=== PATIENT | male | born 1995 | race Caucasian/White ===

== ENCOUNTER 2025-05-03 23:17 | Observation (INO) ==
[2025-05-04 00:11] LABS: Basophils # (Auto) 0.07 K/mcL (0.00-0.30); Basophils % (Auto) 0.7 % (0.0-2.0); Eosinophils # (Auto) 0.18 K/mcL (0.00-0.70); Eosinophils % (Auto) 1.8 % (0.0-7.0); Hematocrit 44.4 % (40.1-51.0); Hemoglobin 15.4 g/dL (13.7-17.5); Lymphocytes # (Auto) 1.92 K/mcL (1.50-4.80); Lymphocytes % (Auto) 19.1 % (15.5-49.0); Mean Corpuscular HGB Conc 34.7 g/dL (31.0-36.0); Monocytes # (Auto) 0.78 K/mcL (0.10-0.90); Monocytes % (Auto) 7.7 % (1.0-12.0); Neutrophils % (Auto) 70.6 % (38.0-78.0); Platelet Count 211 K/mcL (140-440); RBC 5.08 M/mcL (4.63-6.08); WBC 10.1 K/mcL (4.5-11.0)
[2025-05-04] MEDS: ONDANSETRON 4 MG/2 ML VIAL IV PRN (00:13)
[2025-05-04] MEDS: ACETAMINOPHEN 1,000 MG/100 ML BAG IV ONE ×2 (00:13→10:54)
[2025-05-04] MEDS: 0.9 % SODIUM CHLORIDE 1,000 ML IV ONE (00:14)
[2025-05-04 00:22] LABS: ALT/SGPT 51 U/L (<40); AST/SGOT 33 U/L (<40); Albumin 4.5 gm/dL (3.2-5.2); Albumin/Globulin Ratio 1.5 (1.0-2.3); Alkaline Phosphatase 78 U/L (39-117); Anion Gap 14.0 (8.0-16.0); Bilirubin,Total 0.6 mg/dL (0.1-1.0); Blood Urea Nitrogen 15 mg/dL (6-20); Calcium 9.9 mg/dL (8.6-10.4); Carbon Dioxide 24 mmol/L (22-30); Chloride 100 mmol/L (96-108); Globulin 3.0 gm/dL (2.2-3.7); Glucose 85 mg/dL (70-105); Potassium 3.7 mmol/L (3.3-5.1); Sodium 138 mmol/L (133-145)
[2025-05-04] MEDS ORDERED: ONDANSETRON 4 MG/2 ML VIAL IV PRN (01:39)
[2025-05-04] MEDS: 0.9 % SODIUM CHLORIDE 1,000 ML IV SCH (02:07)
[2025-05-04] MEDS: CIPROFLOXACIN 400 MG/200 ML BAG IV ONE (02:08)
[2025-05-04] MEDS: metroNIDAZOLE 500 MG/100 ML BAG IV ONE (03:12)
[2025-05-04] MEDS ORDERED: PROPOFOL 200 MG/20 ML VIAL IV ONE (08:48)
[2025-05-04] MEDS ORDERED: LIDOCAINE 2% PF 5 ML VIAL ONE (08:48)
[2025-05-04] MEDS ORDERED: DEXAMETHASONE 10 MG/ML VIAL ONE (08:48)
[2025-05-04] MEDS ORDERED: fentaNYL 100 MCG/2 ML VIAL ONE (08:48)
[2025-05-04] MEDS ORDERED: ROCURONIUM 10 MG/ML ML IV ONE (08:48)
[2025-05-04] MEDS ORDERED: ONDANSETRON 4 MG/2 ML VIAL ONE (08:48)
[2025-05-04] MEDS ORDERED: DEXMEDETOMIDINE HCL 200 MCG/2 ML VIAL ONE (08:55)
[2025-05-04] MEDS ORDERED: FAMOTIDINE/PF 20 MG/2 ML VIAL IV ONE (10:16)
[2025-05-04] MEDS ORDERED: METOCLOPRAMIDE 10 MG/2 ML VIAL ONE (10:17)
[2025-05-04] MEDS ORDERED: SUGAMMADEX SODIUM 200 MG/2 ML VIAL IV ONE (10:18)
[2025-05-04] MEDS ORDERED: DROPERIDOL 5 MG/2 ML VIAL IV PRN (10:32)
[2025-05-04] MEDS ORDERED: IPRATROPIUM/ALBUTEROL 3 ML AMPUL.NEB NEB PRN (10:32)
[2025-05-04] MEDS: BUPIVACAINE W/EPI 0.5% 50 ML VIAL IJ ONE (10:41)
[2025-05-04] MEDS: HYDROmorphone 0.5 MG/0.5 ML SYRINGE IV PRN ×2 (10:42→11:43)
[2025-05-04] MEDS: fentaNYL 100 MCG/2 ML VIAL IV PRN (10:51)
[2025-05-04] MEDS: CIPROFLOXACIN 400 MG/200 ML BAG IV SCH (11:43)
[2025-05-04] MEDS: DEXTROSE 5%-LR 1,000 ML IV SCH (11:55)
[2025-05-04] MEDS: metroNIDAZOLE 500 MG/100 ML BAG IV SCH (13:59)
[2025-05-04 15:27] LABS: Basophils # (Auto) 0.01 K/mcL (0.00-0.30); Basophils % (Auto) 0.1 % (0.0-2.0); Eosinophils # (Auto) 0 K/mcL (0.00-0.70); Eosinophils % (Auto) 0 % (0.0-7.0); Hematocrit 41.9 % (40.1-51.0); Hemoglobin 14.1 g/dL (13.7-17.5); Lymphocytes # (Auto) 0.56 K/mcL (1.50-4.80); Lymphocytes % (Auto) 6.6 % (15.5-49.0); Mean Corpuscular HGB Conc 33.7 g/dL (31.0-36.0); Monocytes # (Auto) 0.11 K/mcL (0.10-0.90); Monocytes % (Auto) 1.3 % (1.0-12.0); Neutrophils % (Auto) 91.9 % (38.0-78.0); Platelet Count 178 K/mcL (140-440); RBC 4.68 M/mcL (4.63-6.08); WBC 8.5 K/mcL (4.5-11.0)
[2025-05-04 15:46] LABS: ALT/SGPT 42 U/L (<40); AST/SGOT 28 U/L (<40); Albumin 4.1 gm/dL (3.2-5.2); Albumin/Globulin Ratio 1.6 (1.0-2.3); Alkaline Phosphatase 78 U/L (39-117); Anion Gap 12.0 (8.0-16.0); Bilirubin,Direct 0.3 mg/dL (<0.3); Bilirubin,Total 0.7 mg/dL (0.1-1.0); Blood Urea Nitrogen 12 mg/dL (6-20); Calcium 9.3 mg/dL (8.6-10.4); Carbon Dioxide 23 mmol/L (22-30); Chloride 104 mmol/L (96-108); Globulin 2.6 gm/dL (2.2-3.7); Glucose 148 mg/dL (70-105); Phosphorous 3.0 mg/dL (2.5-4.5); Potassium 4.2 mmol/L (3.3-5.1); Sodium 139 mmol/L (133-145); Triglycerides 42 mg/dL (<150); Uric Acid 5.7 mg/dL (2.5-8.0)
[2025-05-04] MEDS: ACETAMINOPHEN 650 MG/65 ML BAG IV PRN (22:24)
[2025-05-05 06:16] LABS: ALT/SGPT 34 U/L (<40); AST/SGOT 24 U/L (<40); Albumin 3.8 gm/dL (3.2-5.2); Albumin/Globulin Ratio 1.5 (1.0-2.3); Alkaline Phosphatase 76 U/L (39-117); Anion Gap 12.0 (8.0-16.0); Bilirubin,Direct 0.3 mg/dL (<0.3); Bilirubin,Total 0.7 mg/dL (0.1-1.0); Blood Urea Nitrogen 9 mg/dL (6-20); Calcium 9.2 mg/dL (8.6-10.4); Carbon Dioxide 24 mmol/L (22-30); Chloride 104 mmol/L (96-108); Globulin 2.6 gm/dL (2.2-3.7); Glucose 160 mg/dL (70-105); Phosphorous 4.4 mg/dL (2.5-4.5); Potassium 3.7 mmol/L (3.3-5.1); Sodium 140 mmol/L (133-145); Triglycerides 103 mg/dL (<150); Uric Acid 5.0 mg/dL (2.5-8.0)
[2025-05-05 07:35] VITALS: TEMP 97.8; O2SAT 100
== END 2025-05-05 13:15 | disposition home or self-care (01) ==
LOC: ED 23:17 → MEDSUR 23:17
PROVIDERS: ADMIT Surgery Surgical Critical Care; ATTEND Surgery Surgical Critical Care
PROC: LAPAPPY (ICD-10-PCS; 2025-05-04 09:11)